=== PATIENT | male | born 1960 ===

== ENCOUNTER 2018-08-31 12:23 | Inpatient (IN) | payer MEDICARE ==
[2018-08-31 12:24] VITALS: BMI 22.6
[2018-08-31 14:22] LABS: BASO # 0.1 K/uL (0.0-0.2); EOS # 0.1 K/uL (0.0-0.7); EOS % 1.4 % (0.0-4.0); HEMOGLOBIN 13.6 g/dL (12.0-18.0); LYMPH # 1.7 K/uL (1.0-4.3); LYMPH % 20.2 % (20.0-40.0); MEAN CELL VOLUME 89.1 fl (80.0-94.0); MEAN CORPUSCULAR HEMOGLOBIN 29.8 pg (27.0-31.0); MEAN CORPUSCULAR HGB CONC 33.4 g/dL (33.0-37.0); MEAN PLATELET VOLUME 8.8 fl (7.2-11.7); MONO # 0.4 K/uL (0.0-0.8); NEUT # 6.1 K/uL (1.8-7.0); NEUT % 72.4 % (50.0-75.0); NRBC % 0.1 % (0.0-0.0); RBC 4.58 Mil/uL (4.40-5.90); RED CELL DISTRIBUTION WIDTH 14.4 % (11.5-14.5); WHITE BLOOD COUNT 8.4 K/uL (4.8-10.8)
[2018-08-31 14:33] LABS: ALB/GLOB RATIO 1.5 (1.0-2.1); ALBUMIN 4.4 g/dL (3.5-5.0); ALT/SGPT 19 U/L (21-72); AST/SGOT 27 U/L (17-59); BLOOD UREA NITROGEN 13 mg/dl (9-20); CALCIUM 9.8 mg/dL (8.4-10.2); GFR NON-AFRICAN AMERICAN > 60
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
[2018-08-31 15:08] LABS: URINE BILIRUBIN NEGATIVE (NEGATIVE); URINE BLOOD NEGATIVE (NEGATIVE); URINE CLARITY SLIGHTY-CLOUDY (Clear); URINE COLOR YELLOW (YELLOW); URINE GLUCOSE (UA) NEG (NEGATIVE); URINE LEUKOCYTE ESTERASE NEG Leu/uL (Negative); URINE PROTEIN NEGATIVE (NEGATIVE)
[2018-08-31 15:59] LABS: BENZODIAZEPINES, UR NEGATIVE (NEGATIVE)
[2018-08-31 16:01] LABS: BARBITURATES, UR NEGATIVE (NEGATIVE); OPIATES, UR NEGATIVE (NEGATIVE); PHENCYCLIDINE, UR NEGATIVE (NEGATIVE)
--- NOTE | 2018-08-31 16:24 | CARD ---
APPROVED REPORT Date of service: 08/31/2018 EKG Measurement Heart [id number] <Conclusion> Normal sinus rhythm Normal ECG
[2018-08-31 16:37] VITALS: O2SAT 98
--- NOTE | 2018-08-31 16:42 | RAD ---
Date of service: 08/31/2018 HISTORY: shortness of breath, cough COMPARISON: No prior. TECHNIQUE: Chest PA and lateral FINDINGS: LUNGS: No active pulmonary disease. PLEURA: No significant pleural effusion identified. No pneumothorax apparent. CARDIOVASCULAR: No aortic atherosclerotic calcification present. Normal cardiac size. No pulmonary vascular congestion. OSSEOUS STRUCTURES: No significant abnormalities. VISUALIZED UPPER ABDOMEN: Normal. OTHER FINDINGS: None. IMPRESSION: No active disease.
[2018-08-31] MEDS ORDERED: Alum-Mag Hydrox-Simethicone Susp (30 mL) PO PRN (17:29)
[2018-08-31] MEDS ORDERED: Magnesium Hydroxide Susp 30 ml UD PO PRN (17:29)
--- NOTE | 2018-08-31 19:20 | PCM.BM ---
<Trista Moreno Joey - Last Filed: 08/31/18 19:22> Treatment Plan Problems - Problems identified on initial assessmt feeling of worthlessness Date Initiated: 08/31/18 Time Initiated: 19:19 Assessment reference: HP, NA Status: Active Priority: 1 hopeless/helpless Date Initiated: 08/31/18 Time Initiated: 19:19 Assessment reference: HP, NA Status: Active Priority: 2 activity intolerance Date Initiated: 08/31/18 Time Initiated: 19:20 Assessment reference: HP, NA Status: Active Priority: 3 Problem 4 Date Initiated: 08/31/18 Time Initiated: 19:21 Assessment reference: HP, NA Status: Active Priority: 4 hypertension Date Initiated: 08/31/18 Time Initiated: 19:21 Assessment reference: HP, NA Status: Active Priority: 5 Treatment assets and liabiliti Patient Assests: cooperative, educated Patient Liabilities: live alone, poor support system, medical problems - Milieu Protocol Maintain good personal hygiene: daily Encourage regular showers, daily Remind patient to perform daily oral care Maintain personal safety: every shift Educate patient to report safety concerns to staff, every shift Monitor environment for contraband/sharps Medication safety: Monitor for expected outcome, potential side effects: every shift, Assess barriers to learning: every shift, Assess readiness for medication education: every shift <Zee Styles - Last Filed: 09/01/18 11:40> - Diagnosis (1) Bipolar disorder Status: Acute Interventions: Medication management, Individual and group therapy, Psychoeducation 09/01/18 11:40 <Alon Saravia - Last Filed: 09/03/18 08:50> Family Contact Family involvement: Family/SO is involved Family contact: Patient agrees to contact, Family has been contacted by patient, Telephone contact initiated by staff Family contact name: Lizzette - Daughter Family contacted how many times per week?: 2 Family contact comment: Bucket Wash Operator met with pt's daughter, Lizzette, who reported that her father appears brighter than upon admission and his thoughts appear more linear and goal oriented. Discharge for 09/04 was discussed with a referral to [facility]. Lizzette had concerns that the neighborhood around [facility] was not safe and does not want her father attending a program there. Lizzette has no concerns for her father's safety at this time and feels that 09/04 is an appropriate date for discharge. - Goals for Treatment Patient goals for treatment: Pt reported he would like to be place on medications to boost his mood and would like to be referred to a program to help him curb his marijuana usage. Discharge/Continuing Care - Education Needs Education Needs: Family Medication, Family Diagnosis/Disease Process, Family Coping Skills, Family Community resources, Family Aftercare Safety Plan, Patient Medication, Patient Diagnosis/Disease Process, Patient Coping Skills, Patient Community resources, Patient Aftercare Safety Plan - Discharge Discharge Criteria: Tolerates medication w/o severe side effects, Free of agitation, Normal sleep pattern, Ability to care for self, Reduction of target symptoms Discharge to:: Home - Treatment Team Participation Patient/Family/SO Statement: 09/03/18 08:48 Pt seen in treatment team on 09/02/18. Pt offered no complaints at this time, but did speak about needing help with hos court date that was on 08/31, date of admission. Pt also asked to be referred to an IOP. Dr. Styles discussed the recent increase of Seroquel from 200mg to 3oomg. Pt reported he was previously c onnected to an IOP in [facility]. Pt denied current SI/HI and AVT hallucinations. Pt is goal/future focused at this time. Discussed with Family/SO: Yes Was Patient/Family/SO present at Treatment Team Meeting: Yes
[2018-09-01 07:13] LABS: FERRITIN 30.8 ng/Ml (17.9-464)
[2018-09-01] MEDS ORDERED: Pneumococcal 23-Valent Vaccine IM ONE (09:00)
[2018-09-01] MEDS: Levothyroxine 25 MCG TAB PO SCH (09:15)
[2018-09-01] MEDS: Metoprolol Succinate 25 mg XL Tab PO SCH (09:18)
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
[2018-09-01 13:20] LABS: FOLATE 7.1 ng/mL
--- NOTE | 2018-09-02 08:43 | PCM.PYCHPN ---
Psychiatric Progress Note - Psychiatric Progress Note Patient seen today, length of contact: Pt evaluated, case discussed w/ team chart reviewed Patient Chief Complaint: Depression Problems Identified/Issues Discussed: Patient continues to report feeling depressed, but states that his mood is starting to improve. He continues to be tearful and states that he cries because he feels abandoned by his family and has recurrent negative thoughts. No acute or passive suicidal ideation/plan/intent. No adverse effects to medications reported. He is requesting to be discharged on Friday. Medication Change: No Medical Record Reviewed: Yes Consults ordered or reviewed: Medicine consult Mental Status Examination - Cognitive Function Orientation: Person, Place, Situation, Time Memory: Intact Attention: WNL Concentration: WNL Association: WNL Fund of Knowledge: WNL - Mood Mood: Depressed - Affect Affect: Depressed - Speech Speech: Appropriate - Formal Thought Process Formal Thought Process: Circumstantial Psychotic Thoughts and Behaviors: NO AH/VH/paranoia/delusions - Suicidal Ideation Suicidal Ideation: No - Homicidal Ideation Homicidal Ideation: No Goal/Treatment Plan - Goal/Treatment Plan Need for Continued Stay: Severe depression anxiety Progress Toward Problem(s) and Goals/Treatment Plan: Bipolar Disorder; Cannabis Use Disorder; Cocaine Use Disorder, in remission -Individual and group therapy -Psychoeducation -Continue Klonopin -Continue Seroquel -Medicine consult -Nicotine patch -Disposition planning - Smoking Cessation Smoking Cessation Initiated: Yes
[2018-09-02] MEDS: Metoprolol Succinate 25 mg XL Tab PO SCH (08:44)
[2018-09-02] MEDS: Levothyroxine 25 MCG TAB PO SCH (08:44)
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
[2018-09-03] MEDS ORDERED: Petrolatum, White 1 OZ TP PRN (07:59)
--- NOTE | 2018-09-03 08:06 | PCM.PYCHPN ---
Psychiatric Progress Note - Psychiatric Progress Note Patient seen today, length of contact: Pt evaluated, case discussed w/ team chart reviewed Patient Chief Complaint: Depression Problems Identified/Issues Discussed: Patient submitted a 48 hr letter requesting to be discharged. He reports that his mood is improving. He denies acute AH/VH/SI/HI. He is less tearful. He is appropriately engaged in groups and with his peers. No adverse effects to medications reported. Medication Change: No Medical Record Reviewed: Yes Consults ordered or reviewed: Medicine consult Mental Status Examination - Cognitive Function Orientation: Person, Place, Situation, Time Memory: Intact Attention: WNL Concentration: WNL Association: [facility] Fund of Knowledge: [facility] Decription of patient's judgement and insights: Fair I/J - Mood Mood: Depressed - Affect Affect: Constricted - Speech Speech: Appropriate - Formal Thought Process Formal Thought Process: No Impairment Psychotic Thoughts and Behaviors: NO AH/VH/paranoia/delusions - Suicidal Ideation Suicidal Ideation: No - Homicidal Ideation Homicidal Ideation: No Goal/Treatment Plan - Goal/Treatment Plan Need for Continued Stay: Severe depression anxiety Progress Toward Problem(s) and Goals/Treatment Plan: Bipolar Disorder; Cannabis Use Disorder; Cocaine Use Disorder, in remission -Individual and group therapy -Psychoeducation -Continue Klonopin -Continue Seroquel -Medicine consult -Nicotine patch -Disposition planning- likely discharge tomorrow as patient does not meet criteria for involuntary commitment at this time Estimated Date of D/C: 09/04/18
[2018-09-03] MEDS: Levothyroxine 25 MCG TAB PO SCH (08:52)
[2018-09-03] MEDS: Metoprolol Succinate 25 mg XL Tab PO SCH (08:53)
[2018-09-04 06:02] VITALS: PULSE 63; RESP 18; TEMP 97.1
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
[2018-09-04] MEDS: Metoprolol Succinate 25 mg XL Tab PO SCH (08:51)
[2018-09-04 08:52] VITALS: BP 107/74
[2018-09-04] MEDS: Levothyroxine 25 MCG TAB PO SCH (08:52)
== END 2018-09-04 10:47 | disposition home or self-care (01) | DRG 885 ==
LOC: H.ER 12:23 → H.ERHOLD 15:58 → H.STEP 16:45
PROVIDERS: ADMIT Psychiatry & Neurology Psychiatry; ATTEND Psychiatry & Neurology Psychiatry
PROC: GZHZZZZ Group Psychotherapy (ICD-10-PCS; principal; 2018-08-31)
PROC: 3E0234Z Introduction of Serum, Toxoid and Vaccine into Muscle, Percutaneous Approach (ICD-10-PCS; 2018-09-01)
DX: F31.9 Bipolar disorder, unspecified (principal); R45.851 Suicidal ideations; I25.10 Atherosclerotic heart disease of native coronary artery without angina pectoris; Z95.5 Presence of coronary angioplasty implant and graft; E03.9 Hypothyroidism, unspecified; E78.5 Hyperlipidemia, unspecified; Z23 Encounter for immunization; Z79.82 Long term (current) use of aspirin; Z79.890 Hormone replacement therapy; I10 Essential (primary) hypertension; F12.10 Cannabis abuse, uncomplicated; F14.11 Cocaine abuse, in remission